=== PATIENT | female | born 1985 | race Caucasian/White ===

== ENCOUNTER 2025-02-12 18:57 | Emergency (ER) | payer OTHER, SELFPAY ==
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
[2025-02-12 19:13] VITALS: BP 128/72; PULSE 75; RESP 16; TEMP 36.6; O2SAT 98
== END 2025-02-12 19:27 | disposition home or self-care (01) ==
PROVIDERS: Emergency Provider Nurse Practitioner
DX: M25.561 Pain in right knee (principal); V49.40XA Driver injured in collision with unspecified motor vehicles in traffic accident, initial encounter
CPT/HCPCS: 99203; G0463